=== PATIENT | female | born 1980 | race American Indian/Alaskan Native ===

== ENCOUNTER 2016-12-25 08:24 | Emergency (ER) | payer OTHER ==
[2016-12-25 08:39] VITALS: BP 123/85
[2016-12-25] MEDS ORDERED: TORADOL IM ONE (10:39)
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
== END 2016-12-25 11:26 | disposition home or self-care (01) ==
LOC: ED 08:24
DX: M79.601 Pain in right arm (principal); R10.9 Unspecified abdominal pain; G89.29 Other chronic pain; K21.9 Gastro-esophageal reflux disease without esophagitis
CPT/HCPCS: 96372; 99282; J1885; J2930

== ENCOUNTER 2017-02-06 10:51 | Outpatient (CLI) | payer OTHER ==
--- NOTE | 2017-02-07 13:43 | Cat Scan Report ---
CT scan of abdomen and pelvis without IV contrast: Findings: Normal liver spleen pancreas and gallbladder. Normal adrenals and kidney parenchyma. Normal bladder. Suspicion of lobulated enlarged uterus. Suspicion of a cyst left ovary and a 1.8 cm. No free intraperitoneal fluid. No evidence of adenopathy. Normal aorta. Small umbilical hernia containing fat. Gaseous choroid stool in colon. No evidence of appendicitis or diverticulitis. Suspicion of an enlarged fibroid uterus. Suspicion of 1.8 cm cyst left ovary. Impression: Suspicion of fibroid uterus and a small cyst left ovary. Small umbilical hernia containing fat.
== END 2017-02-06 10:52 | disposition home or self-care (01) ==
LOC: CT 10:51
PROVIDERS: ATTEND Internal Medicine
DX: K46.9 Unspecified abdominal hernia without obstruction or gangrene (principal); K42.9 Umbilical hernia without obstruction or gangrene
CPT/HCPCS: 74176

== ENCOUNTER 2019-08-03 08:28 | Outpatient (CLI) | payer MEDICAID ==
--- NOTE | 2019-08-03 11:25 | XRay Report ---
CERVICAL SPINE, 3 VIEWS INDICATION: M54.2) CERVICALGIA. COMPARISON: None. IMPRESSION: Normal alignment. Moderate degenerative disc narrowing and circumferential spurring is identified at C5-6. The remaining levels are unremarkable. No acute osseous or soft tissue abnormali ty. LUMBOSACRAL SPINE, 5 VIEWS INDICATION: Low back pain. COMPARISON: None. IMPRESSION: Normal alignment. No significant discogenic DJD or facet arthropathy. No acute osseous or soft tissue abnormality. The oblique images demonstrate wide patency of the neural foramen bilat erally. Normal lumbar spine exam. There are multiple smooth cylindrical densities in the right upper quadrant and left lower quadrant which appear to represent recently ingested pills. Signer Name: Itz Lima Jr, MD Signed: 08/03/2019 11:21 AM Workstation Name: [id number]
== END 2019-08-03 08:29 | disposition home or self-care (01) ==
LOC: XRAY 08:28
PROVIDERS: ATTEND Physical Medicine & Rehabilitation
DX: M50.322 Other cervical disc degeneration at C5-C6 level (principal); M54.5 Low back pain
CPT/HCPCS: 72040; 72110

== ENCOUNTER 2020-08-09 08:55 | Day surgery (SDC) | payer MEDICAID ==
[2020-08-07 12:38] LABS: Basophils # (Auto) 0.1 K/mm3 (0.0-0.1); Basophils % (Auto) 0.8 % (0.0-1.8); Eosinophils # (Auto) 0.1 K/mm3 (0.0-0.4); Eosinophils % (Auto) 1.4 % (0.0-4.3); Lymphocytes # (Auto) 1.5 K/mm3 (1.2-5.4); Lymphocytes % (Auto) 20.9 % (13.4-35.0); Mean Corpuscular HGB Conc 31 % (30-34); Monocytes # (Auto) 0.7 K/mm3 (0.0-0.8); Monocytes % (Auto) 9.6 % (0.0-7.3); Platelet Count 635 K/mm3 (140-440); Red Blood Count 3.58 M/mm3 (3.65-5.03)
[2020-08-07 12:39] LABS: Mean Corpuscular Volume 64 fl (79-97)
--- NOTE | 2020-08-07 13:04 | Anesthesia Consultation ---
Anesthesia Consult and Med Hx Date of service: 08/09/20 - Airway Anesthetic Teeth Evaluation: Good, Crowns, Bridges ROM Head & Neck: Adequate Mental/Hyoid Distance: Adequate Mallampati Class: Class III Intubation Access Assessment: Possibly Difficult - Pulmonary Exam CTA: Yes - Cardiac Exam Cardiac Exam: RRR - Pre-Operative Health Status ASA Pre-Surgery Classification: ASA2 Proposed Anesthetic Plan: General Nerve Block: TAP - Pulmonary Hx Smoking: Yes (occasional vaping) Hx Respiratory Symptoms: No - Cardiovascular System Hx Hypertension: Yes Hx Heart Attack/AMI: No Hx Percutaneous Transluminal Coronary Angioplasty (PTCA): No Hx Cardia Arrhythmia: No - Central Nervous System CVA: No Hx Psychiatric Problems: Yes - Gastrointestinal Hx Gastroesophageal Reflux Disease: Yes (controlled) - Endocrine Hx Renal Disease: No Hx Liver Disease: No Hx Insulin Dependent Diabetes: No Hx Non-Insulin Dependent Diabetes: No Hx Thyroid Disease: No - Hematic Hx Anemia: Yes - Other Systems Hx Obesity: No - Additional Comments Anesthesia Medical History Comments: No hx anesthetic complications.
--- NOTE | 2020-08-08 15:48 | History and Physical Report ---
History of Present Illness Date of examination: 08/08/20 Date of admission: 08/09/2020 Chief complaint: uterine fibroids and DUB History of present illness: 40y/o with dysfunctional uterine bleeding and uterine fibroids. The patient has attempted medical management without resolution in her symptoms. Her menorrhagia has caused iron deficiency anemia. The patient will require transfusion prior to surgery Past History Past Medical History: hypertension Past Surgical History: other (reduction mammoplasty) ADVERTISING OPERATIONS COORDINATOR History: fibroids Social history: - Obstetrical History : 3 Para: 3 Hx # Term Pregnancies: 3 Number of Pregnancies: 0 Spontaneous Abortions: 0 Induced : 0 Number of Living Children: 3 Medications and Allergies Allergies Allergy/AdvReac Type Severity Reaction Status Date / Time No Known Allergies Allergy Unverified 08/03/20 17:31 Home Medications Medication Instructions Recorded Confirmed Last Taken Type RX: Gabapentin [Neurontin] 800 mg PO Q8H 12/25/16 08/03/20 12/25/16 History RX: Omeprazole 40 mg PO DAILY 12/25/16 08/03/20 12/25/16 History Ferrous Sulfate [Iron 325 MG] 325 mg PO DAILY 08/03/20 08/03/20 Unknown History Hydrocodone Bitartrate [Zohydro ER] 10 mg PO DAILY 08/03/20 08/03/20 Unknown History amLODIPine [Norvasc] 10 mg PO DAILY 08/03/20 08/03/20 Unknown History Active Meds: Active Medications Acetaminophen (Tylenol) 1,000 mg PO PREOP BALTA Stop: 08/09/20 21:00 Celecoxib (Celebrex) 200 mg PO PREOP BALTA Stop: 08/09/20 21:00 Fentanyl (Sublimaze) 100 mcg IV ONCE PRN PRN Reason: sedation for nerve block Stop: 08/09/20 21:00 Lactated Ringer's (Lactated Ringers) 1,000 mls @ 100 mls/hr IV DIRECT BALTA Stop: 08/09/20 23:59 Sodium Chloride (Nacl 0.9% 500 Ml) 500 mls @ 0 mls/hr IV ONCE ONE Stop: 08/09/20 06:01 Midazolam HCl (Versed) 2 mg IV PREOP BALTA Stop: 08/09/20 21:00 Scopolamine (Transderm-Scop) 1 each TD PREOP BALTA Stop: 08/09/20 21:00 Review of Systems All systems: negative Genitourinary: vaginal bleeding, pelvic pain - Vital Signs Vital signs: Vital Signs Temp Pulse Resp BP Pulse Ox 98.2 F 88 20 125/77 98 08/07/20 10:50 08/07/20 10:50 08/07/20 10:50 08/07/20 10:50 08/07/20 10:50 Temp Pulse Resp BP Pulse Ox 98.2 F 88 20 125/77 98 08/07/20 10:50 08/07/20 10:50 08/07/20 10:50 08/07/20 10:50 08/07/20 10:50 - Physical Exam Breasts: Positive: deferred Cardiovascular: Regular rate Lungs: Positive: Clear to auscultation Results Result Diagrams: 08/07/20 11:55 All other labs normal. Assessment and Plan - Patient Problems (1) Iron deficiency anemia due to chronic blood loss Status: Acute Plan to address problem: scheduled for a robotic hysterectomy (2) Uterine fibroid Status: Acute (3) Dysfunctional uterine bleeding Status: Acute
[~2020-08-09 08:55] MED LIST: ACETAMINOPHEN 500 MG TAB PO SCH; CELECOXIB 200 MG CAP PO SCH; LACTATED RINGERS 1,000 ML IV SCH; MIDAZOLAM 2 MG/2 ML INJ IV SCH; SCOPOLAMINE TRANSDERMAL PATCH 72 HR TD SCH; SODIUM CHLORIDE 0.9% 500 ML 500 ML IV ONE; ceFAZolin/Water 2 GM/20 ML 2 GM/20 ML SYRINGE IV NR
--- NOTE | 2020-08-09 09:51 | Anesthesia Day of Surgery ---
Anesthesia Day of Surgery - Day of Surgery Patient Examined: Yes Patient H&P Reviewed: Yes Patient is NPO: Yes
[2020-08-09] MEDS ORDERED: ceFAZolin/STERILE WATER 2 GM/20 ML SYRINGE IV NR (10:36)
[2020-08-09] MEDS ORDERED: LIDOCAINE (1%) 10 MG/1 ML VIAL 20 ML MDV ONE (11:09)
[2020-08-09] MEDS ORDERED: dexAMETHasone 4 MG/ML VIAL ONE (11:09)
[2020-08-09] MEDS ORDERED: BUPIVACAINE-EPINEPHRINE/PF 0.5%-1:200,000 (30 ML) VIAL INFILTRATI ONE (11:09)
[2020-08-09] MEDS: fentaNYL 100 MCG/2 ML INJ IV PRN ×2 (11:17→11:19)
[2020-08-09] MEDS ORDERED: propofoL 200 MG/20 ML VIAL IV ONE (13:09)
[2020-08-09] MEDS ORDERED: ROCURONIUM 50 MG/5 ML INJ IV ONE (13:09)
[2020-08-09] MEDS ORDERED: NEOMY 40 MG/POLYMYXIN B 200,000 UNITS/ML (GU) AMPULE IR ONE ×2 (13:16→14:21)
[2020-08-09] MEDS ORDERED: ONDANSETRON 4 MG/2 ML INJ ONE (13:51)
[2020-08-09] MEDS ORDERED: dexAMETHasone 20 MG/5 ML VIAL ONE (13:51)
[2020-08-09] MEDS ORDERED: KETOROLAC 30 MG/1 ML INJ ONE (13:51)
[2020-08-09] MEDS ORDERED: SODIUM CHLORIDE 0.9% IRRIG SOLN 2000 ML IR ONE (14:22)
[2020-08-09] MEDS ORDERED: SODIUM CHLORIDE 0.9% IRR 1,500 ML BOTTLE IR ONE (14:22)
[2020-08-09] MEDS ORDERED: GLYCOPYRROLATE 0.4 MG/2 ML INJ ONE ×2 (14:41→14:50)
[2020-08-09] MEDS ORDERED: NEOSTIGMINE 10MG/10 ML INJ MDV ONE (14:41)
--- NOTE | 2020-08-09 14:48 | Operative Report ---
Operative Report Operative Report: Date of surgery: August 09, 2020 Preoperative diagnoses: Symptomatic uterine fibroids; dysfunctional uterine bleeding; chronic anemia secondary to chronic blood loss. Postoperative diagnoses: Same as above Procedure: Robotic hysterectomy; bilateral salpingectomy Surgeon: Vanessa Hester M.D. Docent Coordinator: Jacqueline Jordan Anesthesia: Gen. endotracheal anesthesia Estimated blood loss: 50 mL Pathology: Uterus, cervix, leiomyomas, bilateral tubes Indication: 40-year-old -0-0-3 with a history of symptomatic uterine fibroids and dysfunctional uterine bleeding. The patient has experienced significant dysfunctional uterine bleeding that has resulted in iron deficiency anemia. The patient was transfused 2 units packed red blood cells prior to surgery. Procedure: The patient was taken to the operating room and given general endotracheal anesthesia without complication. She is prepped and draped in a normal sterile fashion. A bivalve speculum was placed in the patient's vagina and a single- tooth tenaculum placed on the anterior lip of the cervix. The uterus was sounded with the uterine sound. A [employer] uterine manipulator was placed in the bivalve speculum was then removed. Attention was then turned to the patient's abdomen where a millimeter supra umbilical skin incision was then made. A Veress needle was placed and peritoneal entry was verified water-filled syringe. Insufflation of the peritoneal cavity was performed with CO2 gas. The 12 mm trocar was then placed under direct visualization. An additional 8 mm trocar was placed on the patient's left and right lateral side just opposite of the supraumbilical trocar. An additional 8 mm right lateral trocar was then placed as the accessory port. The supraumbilical 12 mm trocar site was closed with the Pepe Crouch device and 0-vicryl suture. The patient was then placed in steep Trendelenburg. The da Flor robot was then engaged. A fenestrated forcep was placed in arm 2 and a vessel sealer was placed in arm 1. General survey revealed evidence of a fibroid uterus with normal tubes and ovaries bilaterally. The surgeon then transferred to the surgical console. The mesosalpinx was then isolated on the right. The vessel sealer was used to coagulate the mesosalpinx which was then transected. The tube was transected from the ovary. The tubo- ovarian ligament was then coagulated and transected. The round ligament was then coagulated and transected also. The vesicouterine peritoneum was then entered from the patient's right side. The uterine vessels were then coagulated with the vessel sealer. The vessels were then transected . Attention was then turned to the patient's left side where the tubo-ovarian ligament and mesosalpinx were again isolated coagulated and transected. The vesical peritoneum was then entered from the left and joined in the midline. Peritoneum was reflected off of the lower uterine segment. Uterine vessels were then coagulated and then transected. The blood supply to the uterus was adequately contained, a posterior colpotomy was made. The V care ring was visualized. Posterior colpotomy was created with the monopolar scissors. The incision was continued circumferentially until anterior colpotomy was made. The cervix and uterus were amputated from the vaginal cuff. The uterus was then removed along with the tubes bilaterally through the vagina and a warm laparotomy sponge was placed and maintain the pneumoperitoneum. The vaginal cuff was then closed in a running fashion with V lock suture. Irrigation of the pelvis was performed. Hemoblast was applied to the incision. The skin was then reapproximated with 4-0 Monocryl. The tissue was sent to pathology which included the cervix, bilateral tubes and uterus. The patient was then successfully extubated. She was then taken to the recovery room in stable condition. All sponge laps and needle counts were correct x2.
[2020-08-09] MEDS: HYDROmorphone 1 MG/1 ML INJ IV PRN ×4 (15:27→16:08)
[2020-08-09] MEDS ORDERED: oxyCODONE 5 MG TAB PO PRN (16:33)
[2020-08-09 17:15] VITALS: BP 102/50
--- NOTE | 2020-08-09 17:21 | Post Anesthesia Evaluation ---
- Post Anesthesia Evaluation Patient Participated: Yes Airway Patent: Yes Stable Respiratory Function: Yes Nausea/Vomiting: No Temp > 96.8F: Yes Pain Manageable: Yes Adequeate Hydration: Yes Anesthesia Complications: No
== END 2020-08-09 18:00 | disposition home or self-care (01) ==
LOC: OR 08:55
PROVIDERS: ATTEND Obstetrics & Gynecology
DX: N93.8 Other specified abnormal uterine and vaginal bleeding (principal); D25.9 Leiomyoma of uterus, unspecified; D50.0 Iron deficiency anemia secondary to blood loss (chronic); N80.0 Endometriosis of uterus; G43.909 Migraine, unspecified, not intractable, without status migrainosus; E78.00 Pure hypercholesterolemia, unspecified; I10 Essential (primary) hypertension; K21.9 Gastro-esophageal reflux disease without esophagitis; F31.9 Bipolar disorder, unspecified; Z98.890 Other specified postprocedural states; Z79.899 Other long term (current) drug therapy
CPT/HCPCS: 36415; 36430; 58552; 84703; 85025; 86850; 86900; 86901; 86920; 88307; A4217; C1765; J0690; J1100; J1170; J1885; J2250; J2405; J2704; J2710; J3010; J7120; P9016; S2900; 64450